=== PATIENT | female | born 1995 | race Caucasian/White ===

== ENCOUNTER 2020-10-03 11:43 | Emergency (ER) | payer OTHER ==
[2020-10-03 11:56] VITALS: BP 120/80; PULSE 92; TEMP 98.8; BMI 27.8
[2020-10-03 13:13] LABS: HCG,QUALITATIVE URINE NEGATIVE
== END 2020-10-03 15:52 | disposition home or self-care (01) ==
LOC: FER 11:43
DX: R10.2 Pelvic and perineal pain (principal)
CPT/HCPCS: 36415; 76830-TC; 76856-TC; 81003; 84703; 87086; 87186; 87491; 87591; 99284-25